=== PATIENT | female | born 2000 | race Caucasian/White ===

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

== ENCOUNTER 2020-06-07 10:17 | Outpatient (CLI) | payer OTHER ==
--- NOTE | 2020-06-07 17:15 | XRAY Report ---
PROCEDURE: Thoracic Spine 2 View INDICATIONS: THORACIC BACK PX TECHNIQUE: 3 views of the thoracic spine were acquired. COMPARISON: None. FINDINGS: Bones: No fractures or dislocations. No suspicious bony lesions. 12 pairs of ribs are noted, and a ppear intact where visualized. Soft tissues: No paravertebral stripe thickening. IMPRESSION: Unremarkable radiographic examination of thoracic spine. Reviewed by: Karel Medrano MD on 06/07/2020 4:14 PM WILL Approved by: Karel Medrano MD on 06/07/2020 4:14 PM [facility] Station ID: [id number]
--- NOTE | 2020-06-14 15:00 | XRAY Report ---
PROCEDURE: Lumbar Spine 2 View INDICATIONS: CHRONIC LOW BACK PX TECHNIQUE: 2 views of the lumbar spine were acquired. COMPARISON: Thoracic spine x-ray June 07, 2020 FINDINGS: Bones: 5 [id number] vertebrae are present. There is normal bony alignment. No vertebral body compression fractures. No suspicious bony lesions. Soft tissues: Overlying bowel gas pattern is normal. No suspicious soft tissue calcifications. IMPRESSION: Normal lumbar spine radiographs Reviewed by: Ben Guzman MD on 06/07/2020 2:20 PM PDT Approved by: Ben Guzman MD on 06/07/2020 2:20 PM PDT Station ID: [id number]
== END 2020-06-07 10:18 | disposition home or self-care (01) ==
LOC: DI.N 10:17
PROVIDERS: ATTEND Family Medicine
DX: M54.5 Low back pain (principal); M54.6 Pain in thoracic spine